=== PATIENT | male | born 1960 | race Caucasian/White ===

== ENCOUNTER → 2024-09-30 | Outpatient (CLI) | payer BC | END | disposition home or self-care (01) | LOC: RAD 11:38 | PROVIDERS: ATTEND Internal Medicine | DX: I08.1 Rheumatic disorders of both mitral and tricuspid valves (principal); R06.02 Shortness of breath; R07.9 Chest pain, unspecified | CPT/HCPCS: 93306 ==

== ENCOUNTER 2024-10-20 10:00 | Observation (INO) | payer BC ==
[2024-10-19 09:08] VITALS: BP 120/74; PULSE 58; RESP 18; TEMP 97.4; O2SAT 95
[2024-10-19 10:21] LABS: BASOPHIL % 0.6 % (0.2-1.2); EOSINOPHIL # 0.4 10^3/uL (0.0-0.2); EOSINOPHIL % 6.9 % (0.0-5.0); HEMOGLOBIN 15.4 g/dL (13.9-16.3); LYMPHOCYTES # 2.13 10^3/uL1 (1.0-4.8); MEAN CORP HGB 31.4 pg (26-34); MEAN CORP HGB CONCENTRATION 34.2 g/dL (33-36.5); MEAN CORP VOLUME 91.8 fL (78-100); MONOCYTES # 0.7 10^3/uL (0.3-0.8); MONOCYTES % 10.4 % (5.0-12.0); NEUTROPHILS % 47.8 % (41.0-85.0); PLATELET COUNT 236 10^3/uL (150-400); RED CELL DISTRIBUTION WIDTH 12.7 % (11.5-14.5); WHITE BLOOD CELL 6.3 10^3/uL (4.5-11.0)
[2024-10-19 10:30] LABS: +ADD MANUAL DIFF(NO CHRG) NO
[2024-10-19 10:56] LABS: ANION GAP 10.6; BUN/CREATININE RATIO 16.36 (10.0-20.0); CALCIUM 9.1 mg/dL (8.4-10.5); CARBON DIOXIDE 28.1 mmol/L (20.0-32); CREATININE SERUM 1.1 mg/dL (0.59-1.40); EST GFR, NON-AA 67.8 (>/=60); POTASSIUM 4.7 mmol/L (3.6-5.2)
[2024-10-19 10:58] LABS: INR 1.1
[~2024-10-20] VITALS: Ht 172.7 cm; Wt 79.4 kg
[2024-10-20 10:00] VITALS: BP 142/95; PULSE 56; RESP 16; TEMP 97.8; O2SAT 99
[~2024-10-20 10:00] MED LIST: LEVO75TA6 PO; PANT40TA6 PO; TRAM50TA PO
[2024-10-20] MEDS ORDERED: PROP80CA3 PO (10:16)
[2024-10-20] MEDS: NS 1000ML 1,000 ML IV SCH (10:51)
[2024-10-20] MEDS ORDERED: SUBLIMAZE 100MCG/2ML ONE (16:38)
[2024-10-20] MEDS ORDERED: XYLOCAINE ONE (16:39)
[2024-10-20] MEDS ORDERED: VERSED ONE ×2 (16:39→18:01)
[2024-10-20] MEDS ORDERED: ADENOSINE IV ONE (17:29)
[2024-10-20] MEDS ORDERED: HEPARIN ONE (17:34)
[2024-10-20] MEDS ORDERED: BENADRYL ONE (17:43)
[2024-10-20] MEDS ORDERED: EFFIENT PO ONE (18:11)
[2024-10-20 18:30] VITALS: BP 152/99; PULSE 72; RESP 17; TEMP 97.4; O2SAT 96
[2024-10-20] MEDS: MORPHINE SULFATE IV PRN (22:01)
[2024-10-21] VITALS: BP 132/87; PULSE 75; RESP 18; TEMP 98.1; O2SAT 94
[2024-10-21 04:00] VITALS: BP 117/77; PULSE 53; RESP 18; TEMP 98.1; O2SAT 91
[2024-10-21 08:34] VITALS: BP 121/80; PULSE 70; RESP 20; TEMP 98; O2SAT 95
[2024-10-21 11:45] VITALS: BP 124/84; PULSE 58; RESP 20; TEMP 98.4; O2SAT 95
[2024-10-21] MEDS ORDERED: TRIA80OI TP (13:34)
[2024-10-21] MEDS ORDERED: PRAS10TA4 PO (13:34)
[2024-10-21] MEDS ORDERED: ATOR20TA PO (13:34)
[2024-10-21] MEDS ORDERED: ASPI-1007 PO (13:34)
[2024-10-21] MEDS ORDERED: Metoprolol Succinate PO (13:34)
[2024-10-21 14:12] VITALS: BP 124/84; PULSE 58; RESP 20; TEMP 98.4; O2SAT 95
[2024-10-21] MEDS ORDERED: EFFIENT PO SCH (21:00)
[2024-10-21] MEDS ORDERED: ASPIRIN EC PO SCH (21:00)
[2024-10-21] MEDS ORDERED: LIPITOR PO SCH (21:00)
[2024-10-22] MEDS ORDERED: TOPROL-XL PO SCH (09:00)
[2024-10-22] MEDS ORDERED: KENALOG 0.1% TP SCH (09:00)
== END 2024-10-21 14:12 | disposition home or self-care (01) ==
LOC: SDC 10:00 → OBS 18:30 → EDBEDREQ 19:05
PROVIDERS: ADMIT Internal Medicine; ATTEND Internal Medicine
DX: I20.0 Unstable angina (principal); I27.20 Pulmonary hypertension, unspecified; R53.83 Other fatigue; Z79.82 Long term (current) use of aspirin; Z79.899 Other long term (current) drug therapy
CPT/HCPCS: 85025; 36415; 80048; 85610; 93005; 96374; 93571; 93460; 99153; 99152; G0378 ×20; J7030 ×3; J1644 ×2; C1894 ×5; C1769 ×3; A6258; J1200; J0153; J2250 ×2; J3010; C9600; A4618; C1725; C1760; E0617; C1874 ×2; Q9967; C1887